=== PATIENT | male | born 1950 | race Caucasian/White ===

== ENCOUNTER 2021-03-09 09:42 | Outpatient (CLI) | payer MEDICARE | END 2021-03-09 09:43 | disposition home or self-care (01) | LOC: CSHCT 09:42 | PROVIDERS: ATTEND Internal Medicine Cardiovascular Disease | DX: Z01.810 Encounter for preprocedural cardiovascular examination (principal); I48.91 Unspecified atrial fibrillation; I70.0 Atherosclerosis of aorta; I51.7 Cardiomegaly; J44.9 Chronic obstructive pulmonary disease, unspecified; R91.1 Solitary pulmonary nodule | CPT/HCPCS: 71275; 82565 ==

== ENCOUNTER 2022-08-15 10:05 | Day surgery (SDC) | payer MEDICARE ==
[2022-08-13 11:22] VITALS: BMI 21.9
[2022-08-15] MEDS ORDERED: Famotidine/PF 20 mg/2ml Vial ONE (11:22)
[2022-08-15] MEDS ORDERED: Bupivacaine/Epinephrine 0.25% 30 ML VIAL ONE (12:04)
[2022-08-15] MEDS ORDERED: PROPOFOL 20 ML ONE (12:05)
[2022-08-15] MEDS ORDERED: Lidocaine 1% PF 5 ML VIAL ONE (12:06)
[2022-08-15] MEDS ORDERED: Fentanyl 250 MCG/5 ML VIAL ONE (12:06)
[2022-08-15] MEDS ORDERED: Ondansetron PF 4 MG/2 ML Vial ONE (12:09)
[2022-08-15] MEDS ORDERED: CEFAZOLIN 2 GM VIAL ONE (12:15)
[2022-08-15] MEDS ORDERED: SUGAMMADEX SODIUM 200 MG/2 ML VIAL ONE (12:20)
[2022-08-15] MEDS ORDERED: Norepinephrine 4 MG/4 ML VIAL ONE (12:20)
[2022-08-15] MEDS ORDERED: Sodium Chloride 0.9% 250 ML 250 ML ONE ×2 (12:21)
[2022-08-15] MEDS ORDERED: Dexamethasone 4 mg/ml Vial ONE (12:46)
[2022-08-15] MEDS ORDERED: Ketorolac Tromethamine 30 MG/ML VIAL ONE (14:00)
[2022-08-15] MEDS ORDERED: Fentanyl 100 MCG/2 ML VIAL ONE ×2 (14:30→14:48)
[2022-08-15] MEDS ORDERED: HYDROcodone/Acetaminophen 5/325 mg Tablet ONE (15:41)
== END 2022-08-15 16:10 | disposition home or self-care (01) ==
LOC: CSHSDC 10:05
PROVIDERS: ATTEND Orthopaedic Surgery
PROC: 0JH70CZ Insertion of Single Array Rechargeable Stimulator Generator into Back Subcutaneous Tissue and Fascia, Open Approach (ICD-10-PCS; principal; 2022-08-15)
PROC: 00HV0MZ Insertion of Neurostimulator Lead into Spinal Cord, Open Approach (ICD-10-PCS; 2022-08-15)
DX: G89.4 Chronic pain syndrome (principal); M54.50 Low back pain, unspecified; M54.16 Radiculopathy, lumbar region; Z88.5 Allergy status to narcotic agent; I10 Essential (primary) hypertension; E78.5 Hyperlipidemia, unspecified; I25.10 Atherosclerotic heart disease of native coronary artery without angina pectoris; I73.9 Peripheral vascular disease, unspecified; I48.91 Unspecified atrial fibrillation; J44.9 Chronic obstructive pulmonary disease, unspecified; F17.200 Nicotine dependence, unspecified, uncomplicated; Z79.899 Other long term (current) drug therapy
CPT/HCPCS: 63016; 63655; 63685; 72020; C1778 ×2; C1820; C1889; J1100; J1885; J2405; J2704; J3010; J7050; S0028